=== PATIENT | female | born 1945 | race Caucasian/White ===

== ENCOUNTER 2020-07-18 12:10 | Emergency (ER) | payer MEDICARE ==
[~2020-07-18] VITALS: Ht 162.6 cm; Wt 73.0 kg
[2020-07-18 12:19] VITALS: BP 192/91
[2020-07-18] MEDS ORDERED: BACTRIM DS1 TAB PO (13:28)
== END 2020-07-18 13:47 | disposition home or self-care (01) ==
LOC: ED 12:10
PROC: 0H9BXZZ Drainage of Right Upper Arm Skin, External Approach (ICD-10-PCS; principal; 2020-07-18)
DX: L02.413 Cutaneous abscess of right upper limb (principal)

== ENCOUNTER 2020-07-20 10:04 | Emergency (ER) | payer MEDICARE ==
[~2020-07-20] VITALS: Ht 162.6 cm; Wt 80.0 kg
[~2020-07-20 10:04] MED LIST: BACTRIM DS1 TAB PO
[2020-07-20] MEDS ORDERED: CEPHALEXIN500 M1 PO (10:34)
[2020-07-20 10:57] VITALS: BP 165/74
== END 2020-07-20 10:57 | disposition home or self-care (01) ==
LOC: ED 10:04
DX: Z48.01 Encounter for change or removal of surgical wound dressing (principal)